=== PATIENT | female | born 1950 | race Two or more races ===

== ENCOUNTER 2023-08-14 16:13 | Emergency (ER) | payer OTHER ==
[~2023-08-14] VITALS: Ht 157.5 cm; Wt 59.0 kg
[2023-08-14] MEDS ORDERED: SODIUM CHLORIDE 0.9% 1,000 ML IV ONE (16:45)
[2023-08-14] MEDS ORDERED: ACETAMINOPHEN 325 MG TAB PO ONE (16:45)
[2023-08-14 17:20] LABS: Basophils # (auto) 0 10 ^3/uL (0-0.2); Basophils % (auto) 0.4 % (0.0-2.0); Eosinophils # (auto) 0 10 ^3/uL (0-0.8); Hematocrit 36.1 % (36.0-46.0); Lymphocytes # (auto) 0.3 10 ^3/uL (0.4-5.4); Lymphocytes % (auto) 2.4 % (10.0-50.0); Mean Corpuscular Hgb Conc. 33.3 g/dL (32.0-36.0); Mean Corpuscular Volume 90.1 fL (80.0-100.0); Monocytes # (auto) 1.1 10 ^3/uL (0-1.3); Monocytes % (auto) 9.2 % (0.0-12.0); Neutrophils # (auto) 10.2 10 ^3/uL (1.6-8.6); Red Blood Cells 4.01 10^6/uL (4.0-5.20); Red Cell Distribution Width 14.7 % (11.8-14.3); White Blood Cell 11.6 10^3/uL (4.4-10.8)
[2023-08-14 17:43] LABS: Alanine Aminotransferase 19 U/L (7-40); Albumin 4.5 g/dL (3.2-4.8); Alkaline Phosphatase 61 U/L (46-116); Anion Gap 10 (5-15); Aspartate Aminotransferase 33 U/L (13-40); BUN/Creatinine Ratio 16.7 (10.0-20.0); Bilirubin, Total 0.5 mg/dL (0.2-1.0); Blood Alcohol < 3.0 mg/dL (<10); Blood Urea Nitrogen 18 mg/dL (9-23); Carbon Dioxide 21 mmol/L (20-30); Chloride 105 mmol/L (98-107); Glucose 181 mg/dL (74-106); Potassium 3.6 mmol/L (3.5-5.1); Sodium 136 mmol/L (136-145); Total Protein 6.5 g/dL (5.7-8.2)
[2023-08-14] MEDS ORDERED: cefTRIAXone 1GM/50ML D5W 50 ML IV ONE (17:45)
[2023-08-14 18:22] LABS: Urine Epithelial Cast None Seen /hpf (<5)
[2023-08-14 18:41] LABS: Urine Bacteria MANY /hpf (None Seen); Urine Blood 3+ /uL (Negative); Urine Clarity HAZY (Clear); Urine Color Yellow (Yellow); Urine Hyaline Cast FEW /lpf (0 - 2); Urine Protein, UAD 1+ (Negative); Urine Urobilinogen Normal (Negative); Urine WBC 262 /hpf (0 - 5); Urine WBC Clumps PRESENT /hpf (None Seen)
[2023-08-14] MEDS ORDERED: NITR-87 PO (19:24)
[2023-08-14 19:35] VITALS: BP 111/62; PULSE 78; RESP 14; TEMP 98.2; O2SAT 95
== END 2023-08-14 20:23 | disposition home or self-care (01) ==
LOC: ER 16:13
DX: N39.0 Urinary tract infection, site not specified (principal); Z79.899 Other long term (current) drug therapy
CPT/HCPCS: 36415; 70450; 80053; 80320; 81001; 82962; 83605; 84484; 85025; 87040; 93005; 96365; 96366; 99285; J0696; J7030